=== PATIENT | female | born 1965 | race Asian ===

== ENCOUNTER 2016-11-14 07:14 | Emergency (ER) | payer BC ==
[~2016-11-14] VITALS: Ht 154.9 cm; Wt 59.0 kg
--- NOTE | 2016-11-14 07:25 | NUR ---
dr carlin at the bedside for eval and exam.
[2016-11-14] MEDS ORDERED: LEVO100T PO (07:27)
[2016-11-14] MEDS ORDERED: predniSONE 20 MG TABLET PO ONE (07:30)
--- NOTE | 2016-11-14 07:33 | NUR ---
MD ordered 50mg of prednisone instead of 40mg po.
[2016-11-14] MEDS ORDERED: predniSONE 50 MG TABLET ONE (07:44)
[2016-11-14 07:45] VITALS: BP 118/70
[2016-11-14] MEDS ORDERED: FAMOTIDINE 20 MG TABLET PO ONE (07:45)
[2016-11-14] MEDS ORDERED: diphenhydrAMINE 25 MG CAP PO ONE ×2 (07:45→07:48)
[2016-11-14] MEDS ORDERED: predniSONE 50 MG TABLET PO ONE (07:45)
[2016-11-14] MEDS ORDERED: FAMOTIDINE 20 MG TABLET ONE (07:48)
== END 2016-11-14 07:45 | disposition home or self-care (01) ==
LOC: ER 07:14
DX: T78.40XA Allergy, unspecified, initial encounter (principal); E03.9 Hypothyroidism, unspecified; Z79.899 Other long term (current) drug therapy; X58.XXXA Exposure to other specified factors, initial encounter
CPT/HCPCS: A4663; J7512; Q0163